=== PATIENT | male | born 1945 | race Caucasian/White ===

== ENCOUNTER 2023-03-13 17:39 | Emergency (ER) | payer OTHER ==
[~2023-03-13] VITALS: Ht 185.4 cm; Wt 86.2 kg
[~2023-03-13 17:39] MED LIST: ASPI325 PO
[2023-03-13 17:54] VITALS: BP 152/84
[2023-03-13] MEDS ORDERED: METF500 PO (18:30)
[2023-03-13] MEDS ORDERED: LOSARTAN-HCTZ1 EAC5 PO (18:30)
== END 2023-03-13 18:51 | disposition home or self-care (01) ==
LOC: ER 17:39
DX: M27.69 Other endosseous dental implant failure (principal); I10 Essential (primary) hypertension; E11.9 Type 2 diabetes mellitus without complications; Z79.899 Other long term (current) drug therapy; Z79.84 Long term (current) use of oral hypoglycemic drugs; Z79.82 Long term (current) use of aspirin
CPT/HCPCS: 64400; 99282-25

== ENCOUNTER → 2024-07-15 | Outpatient (CLI) | payer OTHER ==
[~2024-07-15] MED LIST changes: +LOSARTAN-HCTZ1 EAC5 PO; +METF500 PO
== END ==
LOC: LAB SHORT 14:52 → LAB 14:52 → LAB FUT 07-14 16:45
DX: E11.65 Type 2 diabetes mellitus with hyperglycemia (principal)
CPT/HCPCS: 82043